=== PATIENT | female | born 1965 | race Caucasian/White ===

== ENCOUNTER 2017-01-01 14:17 | Inpatient (IN) | payer OTHER ==
[~2017-01-01] VITALS: Ht 152.4 cm; Wt 77.8 kg
--- NOTE | ~2017-01-01 | CON ---
[place], [place] REPORT OF CONSULTATION NAME: [id number] UNIT #: [id number] ROOM: 406 DOCTOR: RIVAS KIM MD,GABRIELLA BIRTHDATE: [birth year] DOS: 01/02/2017 REASON FOR CONSULTATION: The consultation was done for assessment of the hypoxia. HISTORY OF PRESENT ILLNESS: This is a 51-year-old white female patient who was seen in the walk-in clinic at [facility]. The patient was assessed for the symptoms of having progressive chest congestion, coughing, wheezing and some shortness of breath. Pulse oxygen saturation noted only 85% on room air as she was seen in the walk-in clinic. The patient was sent to the hospital for further assessment and management. The patient was seen at the hospital and currently hospitalized under the care of the hospitalist services for further assessment and medical management of the current acute hypoxia. The patient was noted with symptoms of shortness of breath as well. Denies any symptoms of chest pain. There were no symptoms of hemoptysis. The patient is not sure if she has any symptoms of active wheezing. REVIEW OF SYSTEMS: CONSTITUTIONAL: Limited for this patient, however, the patient was noted symptoms of fatigue and tiredness. Denies symptoms of fever or chills. EYES: Denies burning, redness, or tenderness. EARS, NOSE, THROAT SYMPTOMS: No sore throat, hoarseness, otalgia, postnasal drainage or epistaxis. CARDIOVASCULAR: Denies anginal pain, edema or pain of the lower extremities. GASTROINTESTINAL: Denies dysphagia, nausea, vomiting, diarrhea, abdominal pain, hematemesis, melena. History of chronic obesity. GENITOURINARY SYMPTOMS: Denies dysuria, suprapubic pain, hematuria. SKIN: No lesions or rashes. CENTRAL NERVOUS SYSTEM: Denies dizziness, headache, diplopia, syncopal episode, tingling sensations or chronic migrainous headaches. Remaining systems were reviewed with the patient, they were noted all negative. PAST MEDICAL HISTORY: 1. Reported as history of chronic obesity. 2. Essential hypertension. 3. Lymph node enlargement of the patient in the mediastinum. PAST SURGICAL HISTORY: 1. Described, but appears like a mediastinoscopy done at [facility] 10 years or more as per patient and the and the finding was described to be negative as per them. 2. Cataract extraction as well. 3. Removal of a cyst from the skin. SOCIAL HISTORY: The patient stated she is , does not have any children. Smoking was noted since teens for this patient as 1.5 packs of cigarettes per day active use. Denies history of alcohol use or any illicit drug use. FAMILY HISTORY: The patient's mother is living, 75 years old without any known medical illnesses. Father at age of 7474 years old, complications of COPD. [place], [place] REPORT OF CONSULTATION NAME: PAMELA BEJARANO UNIT #: [id number] ROOM: [facility] DOCTOR: GABRIELLA DONOHUE MD BIRTHDATE: [birth year] MEDICATIONS: From home were noted as no use of regular medications. ALLERGIES: The drug allergy history noted as no known drug allergies. PHYSICAL EXAMINATION: GENERAL: A 51-year-old white female currently noted to be awake and alert without any distress, sitting comfortably on the bed without any distress. VITAL SIGNS: Plethora of the face was noted. NECK: Supple. HEENT: Head is atraumatic. Eyes, nonicterus. NECK: Supple and obese and short. CARDIOVASCULAR SYSTEM: S1, S2 audible. LUNGS: Examination of lungs for this patient was noted with moderate decreased breath sounds noted for this patient without any active crackles at the present time. ABDOMEN: Noted soft, nontender. Bowel sounds are present. EXTREMITIES: Shows no edema, clubbing, cyanosis. CENTRAL NERVOUS SYSTEM: The patient was noted cranial nerves 2 through 12 intact. No focal deficit. MUSCULOSKELETAL: No deformities. SKIN: No lesions or rashes. LABORATORY DATA: CBC of the patient of 01/01/2017, WBC count of 13.4, hemoglobin 15.2, hematocrit 46.8 and platelet count 376,000 as normal. CMP of the patient on 01/01/2017, glucose 105, BUN 7, creatinine was normal. Remaining electrolytes of the patient and the LFTs were normal. Lactic acid yesterday was noted normal troponin of the patient yesterday and this morning 4 sets noted as normal. CBC this morning, WBC count 14.7, hemoglobin and hematocrit normal, platelet count of 354,000. PT/PTT were noted as normal. BMP of the patient this morning were noted as normal BUN and creatinine. Glucose 136. The chest x-ray of the patient that was done for the patient on this admission 01/01/2017 shows appearance of increased interstitial marking was noted in the lungs. Prominent pulmonary hilar areas. CT scan of the chest for the patient that was completed without contrast on 01/01/2017 is unable to accurately assess the mediastinum, but appear like significant lymphadenopathy was suspected in the mediastinal area as well as hilar area. Azygos lymph node for the patient was visible clearly noted 1.4 x 0.8 cm in size. Subcarinal lymph node of the patient noted 2.3 cm in size. Interstitial marking of the patient noted to be increased bilaterally with ground glass nodular opacity noted in the lungs bilaterally. IMPRESSION: 1. The patient who has been currently admitted to the hospital noted with hypoxic respiratory failure, possibility of chronic hypoxic cannot be completely excluded with obesity, hypoventilation for the patient as well. 2. Current findings and symptoms consistent with exacerbation of acute bronchial asthma and/or chronic obstructive pulmonary disease in view of past, chronic tobacco dependence as well, heavy nicotine abuse 1.5 pack of cigarettes per day. [place], [place] REPORT OF CONSULTATION NAME: PAMELA BEJARANO UNIT #: [id number] ROOM: 406 DOCTOR: RIVAS KIM MDGABRIELLA BIRTHDATE: [birth year] 3. Chronic obesity, strong suspicion of obstructive sleep apnea disorder. 4. 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 The differential diagnosis of the current lymph node enlargement and the current infiltration would be considered as finding of chronic hypersensitivity pneumonitis, acute eosinophilic pneumonia as well as sarcoidosis. The malignancy cannot be completely excluded. Smoking related respiratory induced bronchiolitis of the patient would be also considered in the differential diagnosis. PLAN OF TREATMENT: I ordered the arterial blood gas of the patient to assess the accurate assessment of the carbon dioxide of the patient and the pH as well. Continue current dose of corticosteroids in the antibiotics. Further outpatient assessment of the patient's current pulmonary abnormality will be done after discharge from the hospital. Use of the nicotine replacement patches to overcome any nicotine withdrawal for the patient. Antibiotic currently administered Levaquin will suffice the treatment of the current suspected pulmonary infection with tracheobronchitis. The patient will be empirically started on the medication such as Dulera for the long-term management of the current bronchial asthma and/or chronic obstructive pulmonary disease management. Sputum for Gram stain, culture will be done for the patient if the patient is able to expectorate sputum, most of the findings were noted with nonproductive sputum. Nicotine replacement patches will be ordered for this patient as well if the patient would like to use them. They will be available to overcome the nicotine withdrawal. Diagnostic sleep study of the patient would be considered as an outpatient to exclude obstructive sleep apnea disorder. Thanks for allowing me to participate in the care of this patient. GABRIELLA HATHAWAY MD CM:CONSTR:REPORT OF CONSULTATION 1621 01/03/17 0142 interface
--- NOTE | ~2017-01-01 | PR ---
[place], [place] PROGRESS NOTE NAME: PAMELA BEJARANO UNIT #: [id number] ROOM: 406 DOCTOR: GABRIELLA DONOHUE MD BIRTHDATE: [birth year] DOS: 01/03/2017 SUBJECTIVE: She has been noted significant reduction of respiratory complaints of coughing, shortness of breath and others. Denies symptoms of chest pain or any abdominal pain. OBJECTIVE: VITAL SIGNS: The patient shows a normal temperature, respiratory rate 20, heart rate of 91, blood pressure 141/87. Pulse oxygen saturation of the patient recorded as 97% on 2 L nasal cannula. HEENT: Chronic obesity. NECK: Supple and obese. CARDIOVASCULAR SYSTEM: S1, S2 audible. LUNGS: Mild to moderate decreased breaths and improvement in the air entry. There is no wheezing heard. There were no crackles. ABDOMEN: Soft and obese. EXTREMITIES: Showed chronic obesity. LABORATORY DATA: BMP: The patient's labs today were normal. CBC this morning: WBC count was elevated to 27.6 with 89% segmented neutrophils; remaining CBC of the patient was noted as normal. Arterial blood gases that were done yesterday, does not show any evidence of hypercarbia 2 liters oxygen supplementation. The pH for this patient noted as 7.40, pCO2 of 42, pO2 of 70.7. IMPRESSION: 1. The patient who has been currently admitted to the hospital, being treated for acute exacerbation of chronic obstructive pulmonary disease and acute tracheobronchitis. 2. Chronic obesity. 3. Mediastinal and hilar lymphadenopathy sarcoidosis still needs to be excluded. 4. Chronic obesity. Body habitus suspicious for the obstructive sleep apnea disorder. 5. Acute hypoxic respiratory failure as well. PLAN OF TREATMENT: Antibiotics, bronchodilators, oxygen supplementation reduction of the corticosteroid dose. Other supportive plan of management as well. Supportive plan of therapy and care. Usual medical management. Further assessment of the lymphadenopathy will be done with patient as an outpatient with addition of assessment. Solu-Medrol dose has been decreased to b.i.d. dosing. [place], [place] PROGRESS NOTE NAME: PAMELA BEJARANO UNIT #: [id number] ROOM: 406 DOCTOR: GABRIELLA DONOHUE MD BIRTHDATE: [birth year] GABRIELLA HATHAWAY MD CM:PNTRANS [phone] GABRIELLA KIM MD 01/03/17 145 interface
[2017-01-01 14:20] VITALS: BP 162/82
[2017-01-01 14:29] VITALS: BP 152/78
[2017-01-01 14:56] LABS: BASO # 0.1 10*3/uL (0.0-0.1); EOS # 0.4 10*3/uL (0.0-0.4); EOS % 2.9 % (1.0-4.0); HEMATOCRIT 46.8 % (37.0-47.0); HEMOGLOBIN 15.2 g/dl (12.0-16.0); IG # 0.1 10*3/uL (0.0-0.1); LYMPH # 4.2 10*3/uL (1.3-4.4); LYMPH % 31.5 % (27.0-41.0); MEAN CELL VOLUME 89.5 fl (81.0-99.0); MEAN CORPUSCULAR HGB 29.1 pg (27.0-31.0); MEAN CORPUSCULAR HGB CONC 32.5 g/dl (33.0-37.0); MEAN PLATELET VOLUME 9.2 fl (9.6-12.3); MONO # 0.9 10*3/uL (0.1-1.0); MONO % 6.5 % (3.0-9.0); NEUT # 7.8 10*3/uL (2.3-7.9); NEUT % 57.7 % (47.0-73.0); PLATELET COUNT AUTOMATED 376 10*3/uL (130-400); RED BLOOD COUNT 5.23 10*6/uL (4.10-5.10); RED CELL DISTRI WIDTH 14.7 % (0-14.5); WHITE BLOOD COUNT 13.4 10*3/uL (4.8-10.8)
[2017-01-01 15:10] LABS: ALBUMIN 3.2 gm/dl (3.1-4.5); ALKALINE PHOSPHATASE 118 U/L (45-117); BILIRUBIN, TOTAL 0.4 mg/dl (0.2-1.0); BUN 7 mg/dl (7-24); CARBON DIOXIDE 30 mmol/L (21-32); CHLORIDE 99 mmol/L (98-107); EST GLOM FILT AFRICAN AMERICAN > 60 ml/min; GLUCOSE 105 mg/dL (65-99); POTASSIUM 4.5 mmol/L (3.5-5.1); SGOT/AST 11 IU/L (3-35); SGPT/ALT 27 U/L (12-78); SODIUM 136 mmol/L (136-145)
[2017-01-01 15:28] LABS: BILIRUBIN NEGATIVE (NEGATIVE); BLOOD NEGATIVE (NEGATIVE); CLARITY SL CLOUDY (CLEAR); COLOR YELLOW (YELLOW); GLUCOSE NEGATIVE (NEGATIVE); KETONE NEGATIVE (NEGATIVE); LEUKO ESTERASE NEGATIVE (NEGATIVE); NITRITE NEGATIVE (NEGATIVE); PH 6.5 (5.0-9.0); PROTEIN NEGATIVE (NEGATIVE); SPECIFIC GRAVITY <= 1.005 (1.005-1.030); UROBILINOGEN 0.2 E.U./dl (0.2-1.0)
[2017-01-01 15:37] LABS: BACTERIA 2+; URINE REFLEX COMMENT YES (NO)
[2017-01-01 15:38] VITALS: BP 144/72
[2017-01-01 17:16] VITALS: BP 146/82
[2017-01-01 17:53] VITALS: BP 162/84
[2017-01-01 18:07] LABS: CKMB 1.2 ng/ml (0.5-3.6); CPK 50 U/L (26-192)
[2017-01-01 18:17] LABS: TROPONIN I < 0.015 ng/ml (<0.045)
[2017-01-01 20:00] VITALS: BP 140/70
[2017-01-02] VITALS: BP 140/78
[2017-01-02 00:39] LABS: CKMB 1.4 ng/ml (0.5-3.6); CPK 50 U/L (26-192); TROPONIN I < 0.015 ng/ml (<0.045)
[2017-01-02 06:01] LABS: BASO # 0.1 10*3/uL (0.0-0.1); BASO % 0.4 % (0.0-1.0); HEMATOCRIT 46.3 % (37.0-47.0); HEMOGLOBIN 14.8 g/dl (12.0-16.0); IG # 0.1 10*3/uL (0.0-0.1); LYMPH # 1.2 10*3/uL (1.3-4.4); LYMPH % 8.4 % (27.0-41.0); MEAN CELL VOLUME 91.3 fl (81.0-99.0); MEAN CORPUSCULAR HGB 29.2 pg (27.0-31.0); MEAN PLATELET VOLUME 9.7 fl (9.6-12.3); MONO # 0.1 10*3/uL (0.1-1.0); MONO % 0.9 % (3.0-9.0); NEUT # 13.1 10*3/uL (2.3-7.9); NEUT % 89.5 % (47.0-73.0); PLATELET COUNT AUTOMATED 354 10*3/uL (130-400); RED BLOOD COUNT 5.07 10*6/uL (4.10-5.10); RED CELL DISTRI WIDTH 14.8 % (0-14.5); WHITE BLOOD COUNT 14.7 10*3/uL (4.8-10.8)
[2017-01-02 06:11] LABS: CKMB 1.7 ng/ml (0.5-3.6); CPK 44 U/L (26-192)
[2017-01-02 06:24] LABS: TROPONIN I < 0.015 ng/ml (<0.045)
[2017-01-02 06:29] LABS: BUN 7 mg/dl (7-24); CARBON DIOXIDE 28 mmol/L (21-32); CHLORIDE 104 mmol/L (98-107); CHOLESTEROL 186 mg/dL (<200); EST GLOM FILT AFRICAN AMERICAN > 60 ml/min; GLUCOSE 136 mg/dL (65-99); HDL CHOLESTEROL 35 mg/dl (40-60); LDL CHOLESTEROL 138 mg/dL (9-159); POTASSIUM 4.3 mmol/L (3.5-5.1); PROTHROMBIN TIME 10.4 SECONDS (9.0-12.4); SODIUM 139 mmol/L (136-145); TRIGLYCERIDES 67 mg/dl (<150); VLDL CHOLESTEROL 13 mg/dL (6-40)
[2017-01-02 06:37] LABS: THYROID STIM HORMONE (HS) 0.346 uIU/ml (0.358-4.75)
[2017-01-02 08:00] VITALS: BP 130/67
[2017-01-02 08:22] LABS: VITAMIN D, 25-HYDROXY 20.5 ng/mL (30-100)
[2017-01-02 08:23] LABS: FOLIC ACID 1.72 ng/mL (>5.38)
[2017-01-02 12:00] VITALS: BP 121/56
[2017-01-02 16:00] VITALS: BP 113/63
[2017-01-02 16:35] LABS: ABG BASE EXCESS 1.6 mmol/L (-2.0-2.0); ABG CO2 CONTENT 27.5 mmol/L (23-27); ABG HCO3 26.2 mmol/l (22-26); ARTERIAL BLOOD GAS PH 7.403 (7.35-7.45); ARTERIAL BLOOD GAS PO2 70.7 mmHg (80-90)
[2017-01-02 20:00] VITALS: BP 125/66
[2017-01-03] VITALS: BP 131/80
[2017-01-03 07:53] LABS: HEMATOCRIT 45.5 % (37.0-47.0); HEMOGLOBIN 14.7 g/dl (12.0-16.0); MEAN CELL VOLUME 90.3 fl (81.0-99.0); MEAN CORPUSCULAR HGB 29.2 pg (27.0-31.0); MEAN CORPUSCULAR HGB CONC 32.3 g/dl (33.0-37.0); MEAN PLATELET VOLUME 9.7 fl (9.6-12.3); PLATELET COUNT AUTOMATED 354 10*3/uL (130-400); RED BLOOD COUNT 5.04 10*6/uL (4.10-5.10); RED CELL DISTRI WIDTH 14.9 % (0-14.5); WHITE BLOOD COUNT 27.6 10*3/uL (4.8-10.8)
[2017-01-03 08:00] VITALS: BP 141/87
[2017-01-03 08:18] LABS: LYMPHOCYTE # 2.5 10*3/uL (1.3-4.4); MONOCYTE # 0.6 10*3/uL (0.1-1.0); NEUTROPHIL # 24.6 10*3/uL (2.3-7.9); NEUTROPHILS 89 % (47-73); PLATELET SUFFICIENCY NORMAL (NORMAL); TOTAL CELLS COUNTED 100 #CELLS
[2017-01-03 08:23] LABS: BUN 12 mg/dl (7-24); CARBON DIOXIDE 29 mmol/L (21-32); CHLORIDE 103 mmol/L (98-107); EST GLOM FILT AFRICAN AMERICAN > 60 ml/min; GLUCOSE 86 mg/dL (65-99); POTASSIUM 4.5 mmol/L (3.5-5.1); SODIUM 139 mmol/L (136-145)
[2017-01-03] MEDS ORDERED: PREDNISONE10 MG PO (09:20)
[2017-01-03] MEDS ORDERED: LEVAQUIN500 M2 PO (09:20)
== END 2017-01-03 12:15 | disposition home or self-care (01) | DRG 871 ==
LOC: ED 14:17 → EDHOLD 16:43 → 4E 16:43
PROVIDERS: Internal Medicine; Internal Medicine Critical Care Medicine; Registered Nurse
DX: A41.9 Sepsis, unspecified organism (principal); J96.01 Acute respiratory failure with hypoxia; J44.0 Chronic obstructive pulmonary disease with (acute) lower respiratory infection; J44.1 Chronic obstructive pulmonary disease with (acute) exacerbation; J18.9 Pneumonia, unspecified organism; J45.901 Unspecified asthma with (acute) exacerbation; J20.9 Acute bronchitis, unspecified; F17.210 Nicotine dependence, cigarettes, uncomplicated; R65.20 Severe sepsis without septic shock; I10 Essential (primary) hypertension; E66.01 Morbid (severe) obesity due to excess calories; Z71.6 Tobacco abuse counseling; Z79.899 Other long term (current) drug therapy; Z98.42 Cataract extraction status, left eye; Z98.41 Cataract extraction status, right eye; Z80.9 Family history of malignant neoplasm, unspecified; Z83.6 Family history of other diseases of the respiratory system; Z99.81 Dependence on supplemental oxygen; Z68.35 Body mass index [BMI] 35.0-35.9, adult

== ENCOUNTER → 2017-03-01 | Outpatient (CLI) | payer OTHER ==
[~2017-03-01] MED LIST: LEVAQUIN500 M2 PO; PREDNISONE10 MG PO
== END | disposition home or self-care (01) ==
LOC: MAMMO 02-18 02:53
DX: Z12.31 Encounter for screening mammogram for malignant neoplasm of breast (principal)

== ENCOUNTER → 2017-05-04 | Day surgery (SDC) | payer OTHER ==
[~2017-05-04] VITALS: Ht 152.4 cm; Wt 72.6 kg
[~2017-05-04] MED LIST changes: +CLARITIN10 MG PO; +KETOPROFEN75 MG PO; +LISINOPRIL-HYDR1 TA3 PO; +NATURE'S BLEND F1 MG PO; +PRINIVIL10 MG PO; +PROZAC20 MG PO; +SIMVASTATIN40 MG PO
--- NOTE | ~2017-05-04 | O ---
[place], [place] OPERATIVE NOTE NAME: PAMELA BEJARANO UNIT #: [id number] ROOM: DOCTOR: RAMON ERIC MD BIRTHDATE: [birth year] DOS: 05/04/2017 HISTORY OF PRESENT ILLNESS: A 51-year-old patient who has presented with chief complaint of constipation, change in bowel habit, undergoing investigation. ALLERGIES: No known medication. FAMILY HISTORY: Two brothers with colonic carcinoma. PAST SURGICAL HISTORY: Cystoscopy, lung biopsy which was benign. PAST MEDICAL HISTORY: COPD, hypertension, hypercholesterolemia, depression. SOCIAL HISTORY: Smoker, nonalcohol consumer. PROCEDURE: Todays' procedure part of investigation is colonoscopy plus snare polypectomy. PREMEDICATION: Versed and Diprivan. SCOPE: Olympus forward-viewing gastroscope Q10 video. REPORT: After putting the patient in the left lateral position and after application of lubricant to rectal pouch and digital examination, scope was introduced. Thereafter, under direct visualization, I advanced through the length of colon without difficulty. Base of the cecum explored. Appendiceal orifice identified and photographed. The scope was gradually withdrawn at sigmoid colon. Flat polypoid lesion with snare was polypectomized. Sample was recovered. The patient extubated, tolerated procedure well. IMPRESSION: Sigmoid colon polyp, status post snare polypectomy, flat polyp it was. PLAN AND DISCUSSION: High fiber diet, modification in diet and follow up routinely with you in office. This patient also has a loud suspected aortic stenosis murmur, which I am going to defer back to Dr. Milian for further evaluation. [place], [place] OPERATIVE NOTE NAME: PAMELA BEJARANO UNIT #: [id number] ROOM: DOCTOR: RAMON ERIC MD BIRTHDATE: [birth year] RAMON ERIC MD CM:OPRECORD:OPERATIVE NOTE 1102 [id number] RAMON ERIC MD 05/04/17 1220 interface
[2017-05-04 09:45] VITALS: BP 137/68
[2017-05-04 11:00] VITALS: BP 104/48
[2017-05-04 11:14] VITALS: BP 99/54
[2017-05-04 11:30] VITALS: BP 138/82
== END | disposition home or self-care (01) ==
LOC: SDC 04-29 10:15
DX: D12.5 Benign neoplasm of sigmoid colon (principal); J44.9 Chronic obstructive pulmonary disease, unspecified; I10 Essential (primary) hypertension; E78.00 Pure hypercholesterolemia, unspecified; F17.210 Nicotine dependence, cigarettes, uncomplicated; F32.9 Major depressive disorder, single episode, unspecified; Z98.890 Other specified postprocedural states; Z80.0 Family history of malignant neoplasm of digestive organs; Z80.9 Family history of malignant neoplasm, unspecified

== ENCOUNTER → 2017-07-25 | Day surgery (SDC) | payer OTHER ==
[~2017-07-25] VITALS: Ht 152.4 cm; Wt 77.1 kg
[2017-07-25 10:27] VITALS: BP 161/74
[2017-07-25 11:43] VITALS: BP 113/60
[2017-07-25 11:53] VITALS: BP 115/65
[2017-07-25 12:13] VITALS: BP 150/77
== END | disposition home or self-care (01) ==
LOC: SDC 07-21 14:00
DX: I35.9 Nonrheumatic aortic valve disorder, unspecified (principal); I38 Endocarditis, valve unspecified; I10 Essential (primary) hypertension; J44.9 Chronic obstructive pulmonary disease, unspecified; F17.210 Nicotine dependence, cigarettes, uncomplicated; Z98.890 Other specified postprocedural states; E66.9 Obesity, unspecified; Z68.33 Body mass index [BMI] 33.0-33.9, adult; Z80.9 Family history of malignant neoplasm, unspecified

== ENCOUNTER 2017-08-01 15:56 | Inpatient (IN) | payer OTHER ==
[~2017-08-01] VITALS: Ht 152.4 cm; Wt 78.0 kg
--- NOTE | ~2017-08-01 | CON ---
[place], [place] REPORT OF CONSULTATION NAME: PAMELA BEJARANO UNIT #: [id number] ROOM: 512 DOCTOR: JOANNE MELLO MD BIRTHDATE: [birth year] DOS: 08/02/2017 I am seeing this patient on behalf of Dr. Bowers. REASON FOR CONSULTATION: Aortic valve endocarditis. HISTORY OF PRESENT ILLNESS: This is a 51-year-old female, apparently then had a BRITT done by Dr. Bowers last week, showed a 7 mm aortic valve vegetation. The patient followed up with Dr. Milian and he was advised by Dr. Bowers that she should be admitted for inpatient IV antibiotics for subacute endocarditis. The patient got admitted. The patient has been having fever and sweats, particularly at night as well as some shortness of breath and transthoracic that showed [id number]-[id number] aortic regurgitation and mitral regurgitation. The patient got up and BRITT was performed showed endocarditis as mentioned. The patient is a 1 pack per day smoker since age of 13. She quit, good for now. PAST MEDICAL HISTORY: COPD, hypertension, hyperlipidemia, obesity, and tobacco abuse. PAST SURGICAL HISTORY: History of lung biopsy, benign ovarian cystectomy, tonsillectomy. SOCIAL HISTORY: As mentioned. FAMILY HISTORY: Noncontributory. ALLERGIES: None. HOME MEDICATIONS: Amlodipine, folic acid, lisinopril, and simvastatin. REVIEW OF SYSTEMS: CONSTITUTIONAL: Reports fevers and chills. HEENT: No visual disturbances or hearing problems. CARDIOVASCULAR: Complains of diaphoresis. No chest pain. RESPIRATORY: Does complain of shortness of breath. GASTROINTESTINAL: No nausea, no vomiting. GENITOURINARY: No dysuria, hematuria. NEUROLOGIC: Stable. PHYSICAL EXAMINATION: VITAL SIGNS: Blood pressure is 130/57. HEENT: Unremarkable. NECK: Supple. No JVD, No Osler's nodes. LUNGS: Diminished breath sounds. HEART: Heart sounds are regular. No murmur. ABDOMEN: Soft, nontender. EXTREMITIES: Intact pulses. NEUROLOGIC: Stable. LABORATORY DATA: Sodium 137, potassium 3.5, BUN and creatinine within normal [place], [place] REPORT OF CONSULTATION NAME: PAMELA BEJARANO UNIT #: [id number] ROOM: 512 DOCTOR: JOANNE MELLO MD BIRTHDATE: [birth year] limits. Electrolytes are normal. INR is normal. White count is 14.6, hemoglobin 16, hematocrit within normal limits. IMPRESSION: Subacute aortic valve endocarditis, tobacco abuse, hypertension, and hyperlipidemia. RECOMMENDATIONS: Pancultured the patient on IV antibiotics. ID consultation. Continue with other present medications and we will follow up. JOANNE MELLO MD CM:CONSTR:REPORT OF CONSULTATION 0825 08/02/17 0905 interface
--- NOTE | ~2017-08-01 | PR ---
[place], [place] PROGRESS NOTE NAME: [facility]O [facility] [id number] UNIT #: [id number] ROOM: 512 DOCTOR: JOANNE MELLO MD BIRTHDATE: [birth year] DOS: SUBJECTIVE: I am see the patient on behalf of Dr. Bowers. The patient is doing very well, hemodynamically stable. The patient is being treated for aortic valve endocarditis. No evidence of any distal embolization of any vegetation. REVIEW OF SYSTEMS: Normal as per HPI. PHYSICAL EXAMINATION: VITAL SIGNS: Blood pressure is stable, pressure today is 120/60. The patient in sinus rhythm. The patient has negative 1700 mL. NECK: Supple, no JVD. LUNGS: Diminished breath sounds. HEART: Sounds are regular. ABDOMEN: Soft, nontender. NEUROLOGIC: Stable. LABORATORY DATA: Shows white count of 10.8, hemoglobin 14.8, hematocrit 46.4. Electrolytes are normal. Creatinine is normal. IMPRESSION: The patient with aortic valve endocarditis, subacute; hypertension; hyperlipidemia. RECOMMENDATIONS: Continue IV antibiotics as per ID and Dr. Milian. Continue amlodipine, simvastatin, and lisinopril and we will follow up. JOANNE MELLO MD CM:ISABEL [phone] JOANNE MELLO MD 08/03/172019 interface
--- NOTE | ~2017-08-01 | PR ---
[place], [place] PROGRESS NOTE NAME: PAMELA BEJARANO UNIT #: [id number] ROOM: 512 DOCTOR: LIZA WALKER MD BIRTHDATE: [birth year] DOS: 08/04/2017 SUBJECTIVE: She states she feels fine. No fever, chills, or any cough. She has had no breathing difficulty at rest. She has been a heavy smoker and has COPD. She has been on vancomycin for endocarditis, which was suspected from presence of finger clubbing. Transesophageal echocardiogram demonstrated a couple of vegetations on the aortic leaflets with mild regurgitation. Mild mitral regurgitation is also present. PHYSICAL EXAMINATION GENERAL: This is a patient who looks fairly well, but much older than her age. VITAL SIGNS: Pulse is regular at 66, blood pressure is 128/76. NECK: JVP is normal. CARDIOVASCULAR: Auscultation reveals grade 2/6 early peaking systolic murmur over the aortic area and no diastolic murmurs were appreciated. EXTREMITIES: No edema in the lower extremities. ASSESSMENT AND PLAN: This patient has subacute bacterial endocarditis for which she is receiving antibiotics. She should receive 6 weeks of IV antibiotics and after that a BRITT needs to be repeated to see if vegetations have resolved or not. LIZA WALKER MD CM:PNTRANS [id number] LIZA WALKER MD 08/05/17 0009 interface
[~2017-08-01 15:56] MED LIST changes: +LISINOPRIL-HCT1 EACH PO; -LISINOPRIL-HYDR1 TA3 PO
[2017-08-01 16:06] VITALS: BP 137/57
--- NOTE | 2017-08-01 16:06 | NUR ---
A 51, admitted to , under the services of LA Castorena MD with a diagnosis of ENDOCARDITIS. Chief complaint is SHORTNESS OF BREATH. Patient arrived via wheel chair from [place]. Monitor applied. Initial assessment completed. Vital signs taken and recorded. LA CASTORENA MD notified of admission to the unit. Orders received. See assessment for past medical history, medications and allergies. Patient and/or family oriented to unit. [facility] visitation policy reviewed. Clothing/patient valuable form completed. JANIS FAY
[2017-08-01] MEDS ORDERED: NORVASC10 MG PO (16:25)
[2017-08-01] MEDS ORDERED: SYMB160 INH (16:27)
[2017-08-01] MEDS ORDERED: VENTOLIN,PR2 MG/5 ML PO (16:28)
[2017-08-01] MEDS ORDERED: SPIRIVA18 MCG PO (16:29)
--- NOTE | 2017-08-01 16:44 | NUR ---
DR CARCAMO ON FLOOR AND IS AWARE OF CONSULT.
--- NOTE | 2017-08-01 18:03 | NUR ---
CALLED FOR CONSULT.
[2017-08-01 18:08] LABS: BASO # 0.1 10*3/uL (0.0-0.1); BASO % 0.4 % (0.0-1.0); EOS # 0.5 10*3/uL (0.0-0.4); EOS % 3.2 % (1.0-4.0); HEMATOCRIT 49.1 % (37.0-47.0); HEMOGLOBIN 16.4 g/dl (12.0-16.0); LYMPH # 4.1 10*3/uL (1.3-4.4); LYMPH % 28.2 % (27.0-41.0); MEAN CELL VOLUME 90.4 fl (81.0-99.0); MEAN CORPUSCULAR HGB 30.2 pg (27.0-31.0); MEAN CORPUSCULAR HGB CONC 33.4 g/dl (33.0-37.0); MEAN PLATELET VOLUME 9.8 fl (9.6-12.3); MONO # 0.5 10*3/uL (0.1-1.0); MONO % 3.3 % (3.0-9.0); NEUT # 9.4 10*3/uL (2.3-7.9); NEUT % 64.4 % (47.0-73.0); PLATELET COUNT AUTOMATED 343 10*3/uL (130-400); RED BLOOD COUNT 5.43 10*6/uL (4.10-5.10); RED CELL DISTRI WIDTH 14.4 % (0-14.5); WHITE BLOOD COUNT 14.6 10*3/uL (4.8-10.8)
[2017-08-01 18:20] LABS: ACT PARTIAL THROMBO TIME 29.3 SECONDS (20.8-31.5); INTERNATIONAL NORM RATIO 0.9 (2.0-3.5)
[2017-08-01 18:23] LABS: ALBUMIN 3.6 gm/dl (3.1-4.5); ALKALINE PHOSPHATASE 110 U/L (45-117); BUN 6 mg/dl (7-24); CHLORIDE 102 mmol/L (98-107); CREATININE 0.67 mg/dL (0.55-1.02); MAGNESIUM 2.2 mg/dL (1.5-2.1); PHOSPHOROUS 3.4 mg/dL (2.5-4.9); POTASSIUM 3.5 mmol/L (3.5-5.1); SGOT/AST 8 IU/L (3-35); SGPT/ALT 25 U/L (12-78); SODIUM 137 mmol/L (136-145); TOTAL PROTEIN 8.5 gm/dL (6.4-8.2)
[2017-08-01 18:32] LABS: VITAMIN D, 25-HYDROXY 24.3 ng/mL (30-100)
[2017-08-01 20:00] VITALS: BP 115/62
--- NOTE | 2017-08-01 21:00 | NUR ---
RESTING IN BED, NO DISTRESS NOTED. RESPIRATIONS EASY. LUNGS DIMINISHED, CLEAR. PULSE OX 98% 2L. INFREQUENT COUGH. OFFERED AND EDUCATED REGARDING TEDS, DECLINED. CALL LIGHT WITHIN REACH. NO VOICED COMPLAINTS
[2017-08-02] VITALS: BP 108/47
--- NOTE | 2017-08-02 | NUR ---
SLEEPING. NO DISTRESS NOTED. RESPIRATIONS EASY. VSS. CALL LIGHT WITHIN REACH.
--- NOTE | 2017-08-02 06:00 | NUR ---
slept throughout night with no distress noted. respirations easy. o2 in use. call light within reach. no voiced complaints this shift
--- NOTE | 2017-08-02 07:42 | NUR ---
PT RESTING IN BED. NO DISTRESS NOTED. NO VOICED C/O. WILL MONITOR
[2017-08-02 08:00] VITALS: BP 124/80
--- NOTE | 2017-08-02 08:15 | NUR ---
Marketing Executive in to talk to patient. Patient states lives at HOME with HER . There are 3 steps in the home. Physician: DR LANDEROS Pharmacy: [facility] Home health services: NONE Patient's level of ADLs: INDEPENDENT Patient has working utilities: YES DME: O2 FROM [facility] Follow-up physician's appointment after d/c: PREFERS TO MAKE HER OWN APPT Does patient want to access PORTAL?: Discharge plan HOME. HORTENCIA WHITE MAY NEED HOME IV ATB. WILL REVISIT IF NEEDED.
[2017-08-02 09:09] LABS: BASO # 0.1 10*3/uL (0.0-0.1); BASO % 0.7 % (0.0-1.0); EOS # 0.5 10*3/uL (0.0-0.4); HEMATOCRIT 47.9 % (37.0-47.0); HEMOGLOBIN 15.6 g/dl (12.0-16.0); LYMPH # 2.7 10*3/uL (1.3-4.4); LYMPH % 25.4 % (27.0-41.0); MEAN CELL VOLUME 92.6 fl (81.0-99.0); MEAN CORPUSCULAR HGB 30.2 pg (27.0-31.0); MEAN CORPUSCULAR HGB CONC 32.6 g/dl (33.0-37.0); MEAN PLATELET VOLUME 9.4 fl (9.6-12.3); MONO # 0.6 10*3/uL (0.1-1.0); MONO % 5.5 % (3.0-9.0); NEUT # 6.6 10*3/uL (2.3-7.9); NEUT % 63.1 % (47.0-73.0); PLATELET COUNT AUTOMATED 306 10*3/uL (130-400); RED BLOOD COUNT 5.17 10*6/uL (4.10-5.10); RED CELL DISTRI WIDTH 14.4 % (0-14.5); WHITE BLOOD COUNT 10.5 10*3/uL (4.8-10.8)
[2017-08-02 09:22] LABS: BUN 6 mg/dl (7-24); CHLORIDE 101 mmol/L (98-107); CREATININE 0.64 mg/dL (0.55-1.02); SODIUM 138 mmol/L (136-145)
--- NOTE | 2017-08-02 11:50 | NUR ---
IV started left hand with #24 angiocath after 1 attempts. The IV site was prepped with Chloraprep. Heparin lock attached. Sterile dressing applied. Patient tolerated precedure well. Procedure performed according to [facility] policy & procedure. ALTHEA DA SILVA
[2017-08-02 12:00] VITALS: BP 106/52
[2017-08-02 16:00] VITALS: BP 123/56
--- NOTE | 2017-08-02 19:30 | NUR ---
ASSUMED CARE OF PT AT THIS TIME, RESPS EASY AND NONLABORED WITH NO S/S OF DISTRESS CALL LIGHT WITH IN REACH
[2017-08-02 20:00] VITALS: BP 148/72
[2017-08-03] VITALS: BP 133/64
--- NOTE | 2017-08-03 01:57 | NUR ---
RESTING IN BED WITH EYES CLOSED RESPS EASY AND NONLABORED WITH NO S/S OF DISTRESS CALL LIGHT WITH IN REACH
[2017-08-03 07:30] LABS: BASO # 0.1 10*3/uL (0.0-0.1); BASO % 0.7 % (0.0-1.0); EOS # 0.7 10*3/uL (0.0-0.4); EOS % 6.1 % (1.0-4.0); HEMATOCRIT 46.4 % (37.0-47.0); HEMOGLOBIN 14.8 g/dl (12.0-16.0); LYMPH # 2.5 10*3/uL (1.3-4.4); LYMPH % 23.1 % (27.0-41.0); MEAN CELL VOLUME 93.5 fl (81.0-99.0); MEAN CORPUSCULAR HGB 29.8 pg (27.0-31.0); MEAN CORPUSCULAR HGB CONC 31.9 g/dl (33.0-37.0); MEAN PLATELET VOLUME 9.4 fl (9.6-12.3); MONO # 0.6 10*3/uL (0.1-1.0); MONO % 5.6 % (3.0-9.0); NEUT % 64.1 % (47.0-73.0); PLATELET COUNT AUTOMATED 270 10*3/uL (130-400); RED BLOOD COUNT 4.96 10*6/uL (4.10-5.10); RED CELL DISTRI WIDTH 14.3 % (0-14.5); WHITE BLOOD COUNT 10.8 10*3/uL (4.8-10.8)
[2017-08-03 07:56] LABS: BUN 7 mg/dl (7-24); CHLORIDE 105 mmol/L (98-107); POTASSIUM 4.3 mmol/L (3.5-5.1); SODIUM 141 mmol/L (136-145)
[2017-08-03 08:00] VITALS: BP 126/64
[2017-08-03 12:00] VITALS: BP 120/57
[2017-08-03 16:00] VITALS: BP 138/62
[2017-08-03 20:00] VITALS: BP 129/62
[2017-08-04] VITALS: BP 134/67
--- NOTE | 2017-08-04 01:03 | NUR ---
24 HR chart check completed.
[2017-08-04 08:00] VITALS: BP 119/70
--- NOTE | 2017-08-04 08:30 | NUR ---
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 LOOKS LIKE PT WILL NEED HOME IV ATB. GOING FOR PICC TODAY. DR LANDEROS AWARE THAT I NEED A SCRIPT TO GET ATB APPROVED. PT CHOOSES [facility] AND [facility]. WILL ARRANGE WHEN I GET ORDERS.
--- NOTE | 2017-08-04 09:07 | NUR ---
PT TO OR BY WHEELCHAIR FOR PICC LINE PLACEMENT.
--- NOTE | 2017-08-04 10:11 | NUR ---
PATIENT BACK FROM OR WITH PICC LINE PLACED TO RIGHT ARM PLACED. USE OF PICC LINE PENDING CHEST XRAY RESULTS AND ORDERS.
[2017-08-04] MEDS ORDERED: CEFTRIAXON2 GM/50 ML IV (10:52)
--- NOTE | 2017-08-04 10:56 | NUR ---
DR DORSEY NOTIFIED OF CHEST X RESULTS.
--- NOTE | 2017-08-04 11:34 | NUR ---
SCRIPT AND PAPERWORK FAXED TO [facility]. SPOKE WITH MITZI THERE. SHE WILL RUNE HER BENFITS AND CALL ME BACK. AWARE OF DC AFTER 5PM DOSE TONIGHT AND START TOMORROW AT 5PM. ORDER AND PAPERWORK FAXED TO [facility]. MARCO AD [place]GADO. AWARE OF DC TODAY AND START TOMORROW. SHE WILL NOTIFIY ME WHEN SHE LOOKS IT OVER. NURSE AWARE OF DC AFTER 5PM DOSE TONIGHT.
[2017-08-04 12:00] VITALS: BP 136/56
--- NOTE | 2017-08-04 13:13 | NUR ---
[facility] AND [facility] IN PLACE. CAN BE DC AFTER 5PM DOSE TODAY. DR LANDEROS, PT AND NURSE INFORMED.
[2017-08-04] MEDS ORDERED: NICODERM CQ1 EAC2 TD (13:48)
[2017-08-04] MEDS ORDERED: VITAMIN D31000 UNIT PO (13:48)
[2017-08-04 16:00] VITALS: BP 132/62
--- NOTE | 2017-08-04 18:16 | NUR ---
Discharge instructions reviewed with patient/family. Patient receptive and verbalizes understanding. Follow-up care arranged. Written instructions given to patient/family. PATIENT FINISHING LAST DOSE OF ROCEPHIN 2GM VIA PICC LINE TO RIGHT ARM. [facility] VISITING NURSES WILL START TOMORROW'S DOSE AT HOME, PER CASE MANAGEMENT'S ARRANGEMENTS. LARRY JARAMILLO
--- NOTE | 2017-08-04 18:38 | NUR ---
PATIENT DISCHARGED TO [facility]OB[facility] BY WHEELCHAIR, ACCOMPANIED BY [facility], FOR TRANSPORT HOME BY PRIVATE VEHICLE WITH SPOUSE.
== END 2017-08-04 18:38 | disposition home health service (06) | DRG 871 ==
LOC: 5E 15:56
PROVIDERS: Internal Medicine Hospice and Palliative Medicine; ADMIT Internal Medicine
PROC: 02HV33Z Insertion of Infusion Device into Superior Vena Cava, Percutaneous Approach (ICD-10-PCS; principal; 2017-08-04)
DX: A40.9 Streptococcal sepsis, unspecified (principal); I33.0 Acute and subacute infective endocarditis; J96.11 Chronic respiratory failure with hypoxia; E83.41 Hypermagnesemia; R73.9 Hyperglycemia, unspecified; I10 Essential (primary) hypertension; E66.09 Other obesity due to excess calories; J44.9 Chronic obstructive pulmonary disease, unspecified; F17.210 Nicotine dependence, cigarettes, uncomplicated; F32.9 Major depressive disorder, single episode, unspecified; K14.0 Glossitis; J30.2 Other seasonal allergic rhinitis; E78.00 Pure hypercholesterolemia, unspecified; E53.8 Deficiency of other specified B group vitamins; D86.0 Sarcoidosis of lung; Z68.33 Body mass index [BMI] 33.0-33.9, adult; Z71.6 Tobacco abuse counseling; Z98.42 Cataract extraction status, left eye; Z98.41 Cataract extraction status, right eye; Z99.81 Dependence on supplemental oxygen; Z82.5 Family history of asthma and other chronic lower respiratory diseases; Z82.0 Family history of epilepsy and other diseases of the nervous system; Z79.51 Long term (current) use of inhaled steroids; Z79.899 Other long term (current) drug therapy

== ENCOUNTER → 2018-12-08 | Outpatient (CLI) | payer OTHER ==
[~2018-12-08] MED LIST changes: +CEFTRIAXON2 GM/50 ML IV; +CEFUROXIME AXE500 MG PO; +NICODERM CQ1 EAC2 TD; +NORVASC10 MG PO; +PREDNISONE20 M1 PO; +SPIRIVA18 MCG PO; +SYMB160 INH; +VENTOLIN,PR2 MG/5 ML PO; +VITAMIN D31000 UNIT PO
== END | disposition home or self-care (01) ==
LOC: CT 09:52
DX: J01.00 Acute maxillary sinusitis, unspecified (principal); H91.93 Unspecified hearing loss, bilateral

== ENCOUNTER → 2019-03-30 | Outpatient (CLI) | payer OTHER | END | disposition home or self-care (01) | LOC: RAD 09:07 | DX: R20.2 Paresthesia of skin (principal) ==

== ENCOUNTER → 2019-12-28 | Outpatient (CLI) | payer OTHER | END | disposition home or self-care (01) | LOC: US 09:48 | DX: M79.89 Other specified soft tissue disorders (principal) ==

== ENCOUNTER 2020-08-19 16:54 | Emergency (ER) | payer OTHER ==
[~2020-08-19] VITALS: Ht 152.4 cm; Wt 83.9 kg
[2020-08-19 19:38] LABS: BASO # 0.1 10*3/uL (0.0-0.1); BASO % 0.7 % (0.0-1.0); EOS # 0.5 10*3/uL (0.0-0.4); HEMATOCRIT 45.9 % (37.0-47.0); LYMPH # 3.1 10*3/uL (1.3-4.4); LYMPH % 25.6 % (27.0-41.0); MEAN CELL VOLUME 92.7 fl (81.0-99.0); MEAN CORPUSCULAR HGB 29.1 pg (27.0-31.0); MEAN CORPUSCULAR HGB CONC 31.4 g/dl (33.0-37.0); MEAN PLATELET VOLUME 9.4 fl (9.6-12.3); MONO # 0.6 10*3/uL (0.1-1.0); MONO % 5.3 % (3.0-9.0); NEUT # 7.8 10*3/uL (2.3-7.9); NEUT % 64.2 % (47.0-73.0); PLATELET COUNT AUTOMATED 357 10*3/uL (130-400); RED BLOOD COUNT 4.95 10*6/uL (4.10-5.10); RED CELL DISTRI WIDTH 14.6 % (0-14.5); WHITE BLOOD COUNT 12.1 10*3/uL (4.8-10.8)
[2020-08-19 20:18] LABS: ALBUMIN 3.5 gm/dl (3.1-4.5); ALKALINE PHOSPHATASE 113 U/L (45-117); BUN 7 mg/dl (7-24); CHLORIDE 107 mmol/L (98-107); CREATININE 0.74 mg/dL (0.55-1.02); POTASSIUM 3.7 mmol/L (3.5-5.1); SGOT/AST 13 IU/L (3-35); SGPT/ALT 45 U/L (12-78); SODIUM 140 mmol/L (136-145)
[2020-08-19 20:30] LABS: TROPONIN I < 0.015 ng/ml (<0.045)
== END 2020-08-19 21:37 | disposition home or self-care (01) ==
LOC: ED 16:54
PROVIDERS: Internal Medicine
DX: I11.0 Hypertensive heart disease with heart failure (principal); I50.21 Acute systolic (congestive) heart failure; E78.5 Hyperlipidemia, unspecified; Z79.899 Other long term (current) drug therapy; Z79.2 Long term (current) use of antibiotics

== ENCOUNTER → 2020-09-16 | Outpatient (CLI) | payer OTHER | END | disposition home or self-care (01) | LOC: CARD 11:37 | PROVIDERS: ATTEND Physician Assistant | DX: I34.0 Nonrheumatic mitral (valve) insufficiency (principal); I10 Essential (primary) hypertension; R06.02 Shortness of breath; F17.210 Nicotine dependence, cigarettes, uncomplicated; Z23 Encounter for immunization ==

== ENCOUNTER → 2020-09-19 | Outpatient (CLI) | payer OTHER | END | disposition home or self-care (01) | LOC: RAD 08:57 | PROVIDERS: ATTEND Physician Assistant | DX: F17.210 Nicotine dependence, cigarettes, uncomplicated (principal) ==

== ENCOUNTER 2022-04-22 12:33 | Inpatient (IN) | payer OTHER ==
[~2022-04-22] VITALS: Ht 152.4 cm; Wt 81.8 kg
[2022-04-22 13:09] VITALS: BP 173/98
[2022-04-22] MEDS ORDERED: NEURONTIN100 MG PO (13:53)
[2022-04-22] MEDS ORDERED: COREG3.125 MG PO (13:53)
[2022-04-22] MEDS ORDERED: HYDROCHLOROTHIA25 M1 PO (13:54)
[2022-04-22] MEDS ORDERED: LISINOPRIL20 MG PO (13:54)
[2022-04-22 14:56] LABS: BASO # 0.1 10*3/uL (0.0-0.1); EOS # 0.3 10*3/uL (0.0-0.4); EOS % 2.4 % (1.0-4.0); HEMATOCRIT 53.2 % (37.0-47.0); LYMPH # 2.6 10*3/uL (1.3-4.4); LYMPH % 22.2 % (27.0-41.0); MEAN CELL VOLUME 91.4 fl (81.0-99.0); MEAN CORPUSCULAR HGB 28.4 pg (27.0-31.0); MEAN PLATELET VOLUME 9.2 fl (9.6-12.3); MONO # 0.7 10*3/uL (0.1-1.0); MONO % 5.7 % (3.0-9.0); NEUT # 7.8 10*3/uL (2.3-7.9); NEUT % 68.3 % (47.0-73.0); PLATELET COUNT AUTOMATED 334 10*3/uL (130-400); RED BLOOD COUNT 5.82 10*6/uL (4.10-5.10); RED CELL DISTRI WIDTH 15.9 % (0-14.5); WHITE BLOOD COUNT 11.5 10*3/uL (4.8-10.8)
[2022-04-22 15:15] LABS: CHLORIDE 102 mmol/L (98-107); POTASSIUM 4.2 mmol/L (3.5-5.1); SODIUM 138 mmol/L (136-145)
[2022-04-22 15:25] LABS: BUN 10 mg/dl (7-24); CREATININE 0.67 mg/dL (0.55-1.02)
[2022-04-22 16:00] VITALS: BP 154/74
[2022-04-22 20:00] VITALS: BP 141/64
[2022-04-23] VITALS: BP 129/72
[2022-04-23 06:01] LABS: ALKALINE PHOSPHATASE 147 U/L (45-117); BUN 11 mg/dl (7-24); CHLORIDE 102 mmol/L (98-107); CREATININE 0.66 mg/dL (0.55-1.02); POTASSIUM 4.5 mmol/L (3.5-5.1); SGOT/AST 16 IU/L (3-35); SGPT/ALT 31 U/L (12-78); SODIUM 135 mmol/L (136-145)
[2022-04-23 06:09] LABS: THYROID STIM HORMONE (HS) 0.324 uIU/ml (0.358-4.75)
[2022-04-23 06:26] LABS: HEMATOCRIT 53.4 % (37.0-47.0); MEAN CORPUSCULAR HGB 28.7 pg (27.0-31.0); MEAN CORPUSCULAR HGB CONC 30.9 g/dl (33.0-37.0); MEAN PLATELET VOLUME 10.1 fl (9.6-12.3); PLATELET COUNT AUTOMATED 305 10*3/uL (130-400); RED BLOOD COUNT 5.74 10*6/uL (4.10-5.10); RED CELL DISTRI WIDTH 15.7 % (0-14.5); WHITE BLOOD COUNT 12.6 10*3/uL (4.8-10.8)
[2022-04-23 06:54] LABS: MANUAL DIFF REFLEX YES
[2022-04-23 07:14] LABS: PLATELET SUFFICIENCY NORMAL (NORMAL); TOTAL CELLS COUNTED 100 #CELLS
[2022-04-23 08:00] VITALS: BP 144/77
[2022-04-23 12:00] VITALS: BP 118/55
[2022-04-23 14:52] LABS: ABG BASE EXCESS 2.3 mmol/L (-2.0-2.0); ARTERIAL BLOOD GAS PH 7.374 (7.35-7.45); ARTERIAL BLOOD GAS PO2 53.5 (80-90)
[2022-04-23 16:00] VITALS: BP 125/65
[2022-04-23 20:00] VITALS: BP 110/48
[2022-04-24] VITALS: BP 122/57
[2022-04-24 05:51] LABS: BUN 17 mg/dl (7-24); CHLORIDE 102 mmol/L (98-107); POTASSIUM 4.3 mmol/L (3.5-5.1); SODIUM 136 mmol/L (136-145)
[2022-04-24 07:44] LABS: ABG BASE EXCESS 2.4 mmol/L (-2.0-2.0); ARTERIAL BLOOD GAS PH 7.334 (7.35-7.45); ARTERIAL BLOOD GAS PO2 63.2 (80-90)
[2022-04-24 08:00] VITALS: BP 128/76
[2022-04-24 12:00] VITALS: BP 138/62
[2022-04-24 16:00] VITALS: BP 107/89
[2022-04-24 20:00] VITALS: BP 118/50
[2022-04-25] VITALS: BP 101/45
[2022-04-25 05:49] LABS: BUN 22 mg/dl (7-24); CHLORIDE 102 mmol/L (98-107); CREATININE 0.61 mg/dL (0.55-1.02); POTASSIUM 4.3 mmol/L (3.5-5.1); SODIUM 135 mmol/L (136-145)
[2022-04-25 06:03] LABS: HEMATOCRIT 51.4 % (37.0-47.0); MEAN CORPUSCULAR HGB 28.8 pg (27.0-31.0); MEAN CORPUSCULAR HGB CONC 30.4 g/dl (33.0-37.0); MEAN PLATELET VOLUME 10.4 fl (9.6-12.3); PLATELET COUNT AUTOMATED 283 10*3/uL (130-400); RED BLOOD COUNT 5.41 10*6/uL (4.10-5.10)
[2022-04-25 06:13] LABS: MANUAL DIFF REFLEX YES
[2022-04-25 06:37] LABS: TOTAL CELLS COUNTED 100 #CELLS
[2022-04-25 06:38] LABS: PLATELET SUFFICIENCY NORMAL (NORMAL)
[2022-04-25 08:00] VITALS: BP 113/83
[2022-04-25] MEDS ORDERED: MUCINEX1200 M1 PO (11:01)
[2022-04-25] MEDS ORDERED: PREDNISONE10 MG PO (11:01)
[2022-04-25] MEDS ORDERED: ZITHROMAX250 MG PO (11:01)
== END 2022-04-25 12:48 | disposition home or self-care (01) | DRG 871 ==
LOC: 4E 12:33
PROVIDERS: Internal Medicine Critical Care Medicine; Student in an Organized Health Care Education/Training Program; ADMIT Internal Medicine; ATTEND Internal Medicine
PROC: 5A09357 Assistance with Respiratory Ventilation, Less than 24 Consecutive Hours, Continuous Positive Airway Pressure (ICD-10-PCS; principal; 2022-04-24)
PROC: 5A09357 Assistance with Respiratory Ventilation, Less than 24 Consecutive Hours, Continuous Positive Airway Pressure (ICD-10-PCS; 2022-04-25)
DX: A41.9 Sepsis, unspecified organism (principal); J96.21 Acute and chronic respiratory failure with hypoxia; J18.9 Pneumonia, unspecified organism; E87.1 Hypo-osmolality and hyponatremia; E44.0 Moderate protein-calorie malnutrition; F17.213 Nicotine dependence, cigarettes, with withdrawal; D75.1 Secondary polycythemia; D86.0 Sarcoidosis of lung; E78.00 Pure hypercholesterolemia, unspecified; I10 Essential (primary) hypertension; F17.210 Nicotine dependence, cigarettes, uncomplicated; E55.9 Vitamin D deficiency, unspecified; J43.9 Emphysema, unspecified; E66.9 Obesity, unspecified; F32.9 Major depressive disorder, single episode, unspecified; Z98.42 Cataract extraction status, left eye; Z98.41 Cataract extraction status, right eye; Z90.6 Acquired absence of other parts of urinary tract; Z83.6 Family history of other diseases of the respiratory system; Z81.8 Family history of other mental and behavioral disorders; Z86.79 Personal history of other diseases of the circulatory system; Z68.35 Body mass index [BMI] 35.0-35.9, adult

== ENCOUNTER → 2022-12-14 | Outpatient (CLI) | payer OTHER ==
[~2022-12-14] MED LIST changes: +COREG3.125 MG PO; +HYDROCHLOROTHIA25 M1 PO; +LASIX40 MG PO; +LISINOPRIL20 MG PO; +MUCINEX1200 M1 PO; +NEURONTIN100 MG PO; +ZITHROMAX250 MG PO
== END | disposition home or self-care (01) ==
LOC: CARD 11-17 10:30
PROVIDERS: ATTEND Physician Assistant
DX: I08.0 Rheumatic disorders of both mitral and aortic valves (principal); I50.31 Acute diastolic (congestive) heart failure

== ENCOUNTER 2023-01-24 13:48 | Inpatient (IN) | payer OTHER ==
[~2023-01-24] VITALS: Ht 152.4 cm; Wt 85.8 kg
[2023-01-24 14:01] VITALS: BP 190/104
[2023-01-24 14:34] LABS: BASO # 0.1 10*3/uL (0.0-0.1); BASO % 0.8 % (0.0-1.0); EOS # 0.2 10*3/uL (0.0-0.4); EOS % 1.3 % (1.0-4.0); MEAN CELL VOLUME 98.3 fl (81.0-99.0); MEAN CORPUSCULAR HGB 32.1 pg (27.0-31.0); MEAN CORPUSCULAR HGB CONC 32.6 g/dl (33.0-37.0); MEAN PLATELET VOLUME 9.4 fl (9.6-12.3); MONO # 0.8 10*3/uL (0.1-1.0); MONO % 6.1 % (3.0-9.0); NEUT # 10.3 10*3/uL (2.3-7.9); NEUT % 76.5 % (47.0-73.0); PLATELET COUNT AUTOMATED 321 10*3/uL (130-400); RED BLOOD COUNT 4.68 10*6/uL (4.10-5.10); RED CELL DISTRI WIDTH 14.4 % (0-14.5); WHITE BLOOD COUNT 13.4 10*3/uL (4.8-10.8)
[2023-01-24 14:54] LABS: ALKALINE PHOSPHATASE 116 U/L (46-116); BUN 7 mg/dl (9-23); CHLORIDE 106 mmol/L (98-107); POTASSIUM 3.6 mmol/L (3.4-5.1); SGPT/ALT 29 U/L (10-49); TOTAL PROTEIN 8.1 gm/dL (6.0-8.0)
[2023-01-24 15:13] LABS: ABG BASE EXCESS 0.7 mmol/L (-2.0-2.0); ARTERIAL BLOOD GAS PH 7.391 (7.35-7.45); ARTERIAL BLOOD GAS PO2 87.6 (80-90)
[2023-01-24 17:50] VITALS: BP 167/61
[2023-01-24 20:00] VITALS: BP 119/75; BP 135/59
[2023-01-25] VITALS: BP 155/77
[2023-01-25 06:40] LABS: MEAN CORPUSCULAR HGB 31.9 pg (27.0-31.0); MEAN CORPUSCULAR HGB CONC 32.2 g/dl (33.0-37.0); MEAN PLATELET VOLUME 9.7 fl (9.6-12.3); PLATELET COUNT AUTOMATED 357 10*3/uL (130-400); RED BLOOD COUNT 5.05 10*6/uL (4.10-5.10); RED CELL DISTRI WIDTH 14.2 % (0-14.5); WHITE BLOOD COUNT 13.2 10*3/uL (4.8-10.8)
[2023-01-25 07:01] LABS: MANUAL DIFF REFLEX YES
[2023-01-25 07:15] LABS: ALKALINE PHOSPHATASE 123 U/L (46-116); BUN 10 mg/dl (9-23); CHLORIDE 102 mmol/L (98-107); CHOLESTEROL 273 mg/dL (<200); LDL CHOLESTEROL 198 mg/dL (9-159); POTASSIUM 3.6 mmol/L (3.4-5.1); SGPT/ALT 31 U/L (10-49); THYROID STIM HORMONE (HS) 0.608 uIU/ml (0.550-4.780); TOTAL PROTEIN 8.4 gm/dL (6.0-8.0); TRIGLYCERIDES 73 mg/dl (<150)
[2023-01-25 07:16] LABS: BASOPHILS 1 % (0-1); PLATELET SUFFICIENCY NORMAL (NORMAL); TOTAL CELLS COUNTED 100 #CELLS
[2023-01-25 08:00] VITALS: BP 150/82
[2023-01-25 12:00] VITALS: BP 109/67
[2023-01-25 15:28] VITALS: BP 138/76
[2023-01-25 20:00] VITALS: BP 153/81
[2023-01-26] VITALS: BP 133/61
[2023-01-26 06:36] LABS: BUN 14 mg/dl (9-23); CHLORIDE 99 mmol/L (98-107); POTASSIUM 4.5 mmol/L (3.4-5.1)
[2023-01-26 06:41] LABS: HEMATOCRIT 49.1 % (37.0-47.0); MEAN CELL VOLUME 100.8 fl (81.0-99.0); MEAN CORPUSCULAR HGB 32.2 pg (27.0-31.0); MEAN PLATELET VOLUME 10.3 fl (9.6-12.3); PLATELET COUNT AUTOMATED 346 10*3/uL (130-400); RED BLOOD COUNT 4.87 10*6/uL (4.10-5.10); WHITE BLOOD COUNT 19.5 10*3/uL (4.8-10.8)
[2023-01-26 06:42] LABS: MANUAL DIFF REFLEX YES
[2023-01-26 07:23] LABS: BASOPHILS 1 % (0-1); BURR CELLS FEW; PLATELET SUFFICIENCY NORMAL (NORMAL); POLYCHROMASIA SLIGHT; TOTAL CELLS COUNTED 100 #CELLS; VACUOLATION OF NEUTROPHILS SLIGHT
[2023-01-26 08:00] VITALS: BP 144/74
[2023-01-26] MEDS ORDERED: PREDNISONE10 MG PO (11:01)
[2023-01-26] MEDS ORDERED: VITAMIN D3125 MC1 PO (11:01)
[2023-01-26] MEDS ORDERED: DOXYCYCLINE HY100 M3 PO (11:01)
== END 2023-01-26 13:25 | disposition home or self-care (01) | DRG 871 ==
LOC: ED 13:48 → EDHOLD 16:26 → 4E 16:26
PROVIDERS: Internal Medicine; Nurse Practitioner Family; Student in an Organized Health Care Education/Training Program; ADMIT Internal Medicine; ATTEND Internal Medicine
DX: A41.9 Sepsis, unspecified organism (principal); I50.33 Acute on chronic diastolic (congestive) heart failure; J18.9 Pneumonia, unspecified organism; J96.01 Acute respiratory failure with hypoxia; J44.0 Chronic obstructive pulmonary disease with (acute) lower respiratory infection; J44.1 Chronic obstructive pulmonary disease with (acute) exacerbation; R65.20 Severe sepsis without septic shock; Z96.1 Presence of intraocular lens; R00.1 Bradycardia, unspecified; Z20.822 Contact with and (suspected) exposure to COVID-19; E87.79 Other fluid overload; I11.0 Hypertensive heart disease with heart failure; F17.200 Nicotine dependence, unspecified, uncomplicated; D86.0 Sarcoidosis of lung; Z71.6 Tobacco abuse counseling; Z98.42 Cataract extraction status, left eye; Z98.41 Cataract extraction status, right eye; Z82.5 Family history of asthma and other chronic lower respiratory diseases; Z79.899 Other long term (current) drug therapy

== ENCOUNTER → 2024-10-04 | Outpatient (CLI) | payer OTHER ==
[~2024-10-04] MED LIST changes: +Bactroban Oint22 GM T; +DOXYCYCLINE HY100 M3 PO; +DOXYCYCLINE MO100 MG PO; +K-TAB10 MEQ PO; +NICODERM T; +OXYGEN NAS; +VITAMIN D3125 MC1 PO
== END | disposition home or self-care (01) ==
LOC: CARD 14:32
PROVIDERS: ATTEND Physician Assistant
DX: Z12.2 Encounter for screening for malignant neoplasm of respiratory organs (principal); I08.0 Rheumatic disorders of both mitral and aortic valves; R91.1 Solitary pulmonary nodule; J90 Pleural effusion, not elsewhere classified; I27.20 Pulmonary hypertension, unspecified; I25.10 Atherosclerotic heart disease of native coronary artery without angina pectoris; R01.1 Cardiac murmur, unspecified; F17.210 Nicotine dependence, cigarettes, uncomplicated

== ENCOUNTER → 2025-04-04 | Outpatient (CLI) | payer OTHER ==
[~2025-04-04] MED LIST changes: +BREZTRI AEROS10.7 GM INH; +CARVEDILOL6.25 MG PO; +GOOD SENSE ALLE10 M2 PO; +LEVOPHED BI1 MG/1 M1 IV; +ROSUVASTATIN CA40 MG PO; +VIBRA-TAB100 MG PO
== END | disposition home or self-care (01) ==
LOC: CARD 15:00
PROVIDERS: ATTEND Internal Medicine Interventional Cardiology
DX: I08.0 Rheumatic disorders of both mitral and aortic valves (principal); R06.02 Shortness of breath

== ENCOUNTER 2025-05-24 21:27 | Inpatient (IN) | payer OTHER ==
[~2025-05-24] VITALS: Ht 152.4 cm; Wt 70.8 kg
[2025-05-24 21:38] VITALS: BP 102/51
[2025-05-24 22:13] LABS: BASO # 0.1 10*3/uL (0.0-0.1); BASO % 0.9 % (0.0-1.0); EOS # 0.3 10*3/uL (0.0-0.4); EOS % 3.4 % (1.0-4.0); MEAN CORPUSCULAR HGB 29.5 pg (27.0-31.0); MEAN PLATELET VOLUME 9.7 fl (9.6-12.3); MONO # 0.8 10*3/uL (0.1-1.0); MONO % 9.5 % (3.0-9.0); NEUT # 5.5 10*3/uL (2.3-7.9); NEUT % 64.3 % (47.0-73.0); NUCLEATED RED BLOOD CELL 0.0 % (0.0-0.0); NUCLEATED RED BLOOD CELL 0.0 10*3/uL (0.0-0.0); PLATELET COUNT AUTOMATED 143 10*3/uL (130-400); RED CELL DISTRI WIDTH 16.7 % (0-14.5)
[2025-05-24 22:15] LABS: MEAN CELL VOLUME 90.9 fl (81.0-99.0)
[2025-05-24 22:32] LABS: BUN 64.0 mg/dl (9-23)
[2025-05-24 22:58] VITALS: BP 124/90
[2025-05-24 23:47] LABS: BILIRUBIN Negative (Negative); BLOOD 2+ (Negative); CLARITY Turbid (Clear); COLOR Yellow (Yellow); KETONE Negative (Negative); LEUKO ESTERASE Trace (Negative); NITRITE Negative (Negative); PH 6.0 (4.5-8.0); SPECIFIC GRAVITY 1.015 (1.001-1.030); UROBILINOGEN 0.2 E.U./dl (0.0-1.0)
[2025-05-24] MEDS ORDERED: SODIUM CHLORIDE 0.9% 1,000 ML IV ONE (23:50)
[2025-05-24 23:53] LABS: BACTERIA 2+; COARSE GRANULAR CAST 0-2; EPITHELIAL CELLS 21-30; MUCOUS 1+
[2025-05-25] MEDS ORDERED: POTASSIUM CHLORIDE IN WATER 100 ML IV SCH
[2025-05-25 01:29] VITALS: BP 114/46
[2025-05-25] MEDS ORDERED: SODIUM BICARBONATE 50 MEQ/50 ML VIAL IV ONE ×2 (01:40→05:55)
[2025-05-25 02:02] LABS: BUN 63.0 mg/dl (9-23); SGPT/ALT 51.0 U/L (5-49)
[2025-05-25 02:15] VITALS: BP 106/81
[2025-05-25 06:13] LABS: FREE T4 0.84 ng/dl (0.89-1.76)
[2025-05-25 06:21] LABS: BASO # 0.1 10*3/uL (0.0-0.1); BASO % 0.9 % (0.0-1.0); EOS # 0.3 10*3/uL (0.0-0.4); EOS % 3.8 % (1.0-4.0); MEAN CELL VOLUME 91.5 fl (81.0-99.0); MEAN CORPUSCULAR HGB 29.7 pg (27.0-31.0); MEAN PLATELET VOLUME 9.9 fl (9.6-12.3); MONO # 0.7 10*3/uL (0.1-1.0); MONO % 8.9 % (3.0-9.0); NEUT # 5.3 10*3/uL (2.3-7.9); NEUT % 67.5 % (47.0-73.0); NUCLEATED RED BLOOD CELL 0.0 % (0.0-0.0); NUCLEATED RED BLOOD CELL 0.0 10*3/uL (0.0-0.0); PLATELET COUNT AUTOMATED 123 10*3/uL (130-400); RED CELL DISTRI WIDTH 16.7 % (0-14.5)
[2025-05-25 06:28] LABS: BUN 64.0 mg/dl (9-23)
[2025-05-25 08:00] VITALS: BP 106/45
[2025-05-25] MEDS ORDERED: Sevelamer Hydrochloride 800 MG TAB PO SCH (08:00)
[2025-05-25] MEDS ORDERED: HEPARIN SODIUM 5,000 UNIT/ML VIAL SC SCH (10:00)
[2025-05-25 12:00] VITALS: BP 107/36
[2025-05-25 12:25] LABS: URINE CHLORIDE, RANDOM 65.0 mmol/L
== END 2025-05-25 14:45 | disposition short-term general hospital (02) | DRG 682 ==
LOC: ED 21:27 → EDHOLD 23:57 → 5E 05-25 02:02
PROVIDERS: Family Medicine; Internal Medicine; Student in an Organized Health Care Education/Training Program; ADMIT Internal Medicine; ATTEND Internal Medicine
DX: N17.0 Acute kidney failure with tubular necrosis (principal); E43 Unspecified severe protein-calorie malnutrition; E87.1 Hypo-osmolality and hyponatremia; E87.20 Acidosis, unspecified; I50.32 Chronic diastolic (congestive) heart failure; N39.0 Urinary tract infection, site not specified; F17.210 Nicotine dependence, cigarettes, uncomplicated; J44.9 Chronic obstructive pulmonary disease, unspecified; F32.A Depression, unspecified; I11.0 Hypertensive heart disease with heart failure; E78.00 Pure hypercholesterolemia, unspecified; E66.9 Obesity, unspecified; D86.9 Sarcoidosis, unspecified; R34 Anuria and oliguria; E83.39 Other disorders of phosphorus metabolism; E83.51 Hypocalcemia; R74.01 Elevation of levels of liver transaminase levels; D69.6 Thrombocytopenia, unspecified; D64.9 Anemia, unspecified; Z79.899 Other long term (current) drug therapy; Z79.01 Long term (current) use of anticoagulants; Z79.2 Long term (current) use of antibiotics; Z98.42 Cataract extraction status, left eye; Z91.199 Patient's noncompliance with other medical treatment and regimen due to unspecified reason; Z98.41 Cataract extraction status, right eye; Z82.5 Family history of asthma and other chronic lower respiratory diseases; Z81.8 Family history of other mental and behavioral disorders; Z80.0 Family history of malignant neoplasm of digestive organs; Z68.30 Body mass index [BMI] 30.0-30.9, adult